=== PATIENT | female | born 1980 | race Caucasian/White ===

== ENCOUNTER 2017-01-20 11:21 | Emergency (ER) | payer MEDICAID ==
[~2017-01-20] VITALS: Ht 170.2 cm; Wt 66.0 kg
[2017-01-20 12:40] VITALS: BP 107/66
== END 2017-01-20 13:42 | disposition left against medical advice (07) ==
LOC: ER 11:21
DX: Z53.21 Procedure and treatment not carried out due to patient leaving prior to being seen by health care provider (principal)

== ENCOUNTER 2017-01-20 16:51 | Emergency (ER) | payer MEDICAID ==
[~2017-01-20] VITALS: Ht 170.2 cm; Wt 65.0 kg
[2017-01-21] MEDS ORDERED: HYDROCODONE/ACETAMINOPHEN 10/325MG TABLET PO ONE (00:15)
[2017-01-21 02:39] VITALS: BP 115/71
== END 2017-01-21 03:30 | disposition home or self-care (01) ==
LOC: ER 17:30
DX: R51 Headache (principal); R11.2 Nausea with vomiting, unspecified; R55 Syncope and collapse; Y08.89XA Assault by other specified means, initial encounter; Y93.89 Activity, other specified; Y92.89 Other specified places as the place of occurrence of the external cause; Y99.8 Other external cause status
CPT/HCPCS: 70450; 70486; 81025; 99284; Z7610